=== PATIENT | female | born 1950 | race Caucasian/White ===

== ENCOUNTER → 2017-10-28 | Outpatient (CLI) | payer MEDICARE ==
[~2017-10-28] MED LIST: ALBU8.5H8 IH; AMLO5TAB2 PO; AUD NEB; CLOP75TA32 PO; MIRT30TA6 PO; PANT40TA25 PO; ROSU40TA28 PO
== END | disposition home or self-care (01) ==
LOC: SHCH 11:04
PROVIDERS: ATTEND Internal Medicine Cardiovascular Disease
DX: I87.2 Venous insufficiency (chronic) (peripheral) (principal); K21.9 Gastro-esophageal reflux disease without esophagitis
CPT/HCPCS: 93970

== ENCOUNTER → 2017-12-08 | Outpatient (CLI) | payer MEDICARE | END | disposition home or self-care (01) | LOC: SHCH 10:04 | PROVIDERS: ATTEND Internal Medicine Cardiovascular Disease | DX: I73.9 Peripheral vascular disease, unspecified (principal) | CPT/HCPCS: 93925 ==

== ENCOUNTER → 2018-03-09 | Outpatient (CLI) | payer MEDICARE ==
[~2018-03-09] MED LIST changes: +ROSU40TA20 PO; -ROSU40TA28 PO
== END | disposition home or self-care (01) ==
LOC: SHCH 07:53
PROVIDERS: ATTEND Internal Medicine Cardiovascular Disease
DX: I10 Essential (primary) hypertension (principal)
CPT/HCPCS: 93975

== ENCOUNTER → 2020-09-09 | Outpatient (CLI) | payer MEDICARE ==
[~2020-09-09] MED LIST changes: +AMLO-257 PO; -AMLO5TAB2 PO; -PANT40TA25 PO; +PANT40TA54 PO; -ROSU40TA20 PO; +ROSU40TA21 PO
== END | disposition home or self-care (01) ==
LOC: SHCH 09:34
PROVIDERS: ATTEND Internal Medicine Cardiovascular Disease
DX: I73.9 Peripheral vascular disease, unspecified (principal); I15.0 Renovascular hypertension; R06.09 Other forms of dyspnea; I70.1 Atherosclerosis of renal artery
CPT/HCPCS: 93975

== ENCOUNTER → 2020-09-11 | Outpatient (CLI) | payer MEDICARE | END | disposition home or self-care (01) | LOC: SHCH 14:12 | PROVIDERS: ATTEND Internal Medicine Cardiovascular Disease | DX: R06.09 Other forms of dyspnea (principal) | CPT/HCPCS: 93306; 93356 ==

== ENCOUNTER → 2022-08-13 | Outpatient (CLI) | payer MEDICARE ==
[~2022-08-13] MED LIST changes: +MIRT-93 PO; -MIRT30TA6 PO
== END | disposition home or self-care (01) ==
LOC: SHCH 10:37
PROVIDERS: ATTEND Internal Medicine Cardiovascular Disease
DX: I11.9 Hypertensive heart disease without heart failure (principal); R01.1 Cardiac murmur, unspecified; E78.5 Hyperlipidemia, unspecified; J44.9 Chronic obstructive pulmonary disease, unspecified
CPT/HCPCS: 93306

== ENCOUNTER → 2022-10-01 | Outpatient (CLI) | payer MEDICARE | END | disposition home or self-care (01) | LOC: SHCH 08:03 | PROVIDERS: ATTEND Internal Medicine Cardiovascular Disease | DX: I73.9 Peripheral vascular disease, unspecified (principal); I87.2 Venous insufficiency (chronic) (peripheral); Q27.1 Congenital renal artery stenosis; I15.0 Renovascular hypertension; I70.1 Atherosclerosis of renal artery; I10 Essential (primary) hypertension; E78.5 Hyperlipidemia, unspecified; R01.1 Cardiac murmur, unspecified; R06.02 Shortness of breath; F17.210 Nicotine dependence, cigarettes, uncomplicated | CPT/HCPCS: 93925; 93970; 93975 ==

== ENCOUNTER → 2022-10-02 | Outpatient (CLI) | payer MEDICARE ==
[~2022-10-02] MED LIST changes: +REGADENOSON 0.4 MG/5 ML PF SYG IVP SCH
== END | disposition home or self-care (01) ==
LOC: SHCH 08:11
PROVIDERS: ATTEND Internal Medicine Cardiovascular Disease
DX: R06.02 Shortness of breath (principal); R01.1 Cardiac murmur, unspecified
CPT/HCPCS: 78452; 96374; 93017; J2785; A9500 ×2

== ENCOUNTER → 2022-11-10 | Outpatient (CLI) | payer MEDICARE ==
[~2022-11-10] MED LIST changes: +IOHEXOL 350 MG/ML 100ML INFUS..BTL IV ONE; +IOHEXOL-350 50ML VIAL IV ONE; -REGADENOSON 0.4 MG/5 ML PF SYG IVP SCH
== END | disposition home or self-care (01) ==
LOC: RAH 07:51
PROVIDERS: ATTEND Internal Medicine Cardiovascular Disease
DX: I25.10 Atherosclerotic heart disease of native coronary artery without angina pectoris (principal); M47.815 Spondylosis without myelopathy or radiculopathy, thoracolumbar region; I73.9 Peripheral vascular disease, unspecified
CPT/HCPCS: 75635; Q9967 ×2

== ENCOUNTER 2022-12-16 06:35 | Day surgery (SDC) | payer OTHER, MEDICARE ==
[2022-12-14 12:07] LABS: BASOPHILS % (AUTO) 0.7 % (0.0-5.0); EOSINOPHILS % (AUTO) 2.7 % (0.0-8.0); HEMATOCRIT 38.6 % (36-48); LYMPHOCYTES % (AUTO) 23.8 % (21.0-51.0); MEAN CORPUSCULAR HEMOGLOBIN 29.6 pg (27.0-33.0); MEAN CORPUSCULAR HGB CONC 31.1 g/dL (32.0-36.0); MEAN CORPUSCULAR VOLUME 95.3 fL (79-99); MONOCYTES % (AUTO) 7.9 % (3.0-13.0); NEUTROPHILS % (AUTO) 63.8 % (40.0-77.0); PLATELET COUNT (AUTO) 299 K/uL (130-400); RED BLOOD CELL COUNT(AUTO) 4.05 MIL/uL (4.00-5.50); RED CELL DISTRIBUTION WIDTH 14.6 % (11.0-15.5); WHITE BLOOD COUNT (AUTO) 8.1 K/uL (4.8-10.8)
[2022-12-14 12:16] LABS: CREATININE 1.4 mg/dL (0.5-1.5); POTASSIUM 4.7 mmol/L (3.5-5.1)
[2022-12-14 12:18] LABS: INR 0.93 (0.85-1.15); PROTHROMBIN TIME 9.9 SEC (9.6-11.6)
[2022-12-14 12:19] LABS: PARTIAL THROMBOPLASTIN TIME 26.3 SEC (26.3-35.5)
[2022-12-14 12:41] VITALS: BP 163/69
[~2022-12-16] VITALS: Ht 165.1 cm; Wt 79.0 kg
[2022-12-16] VITALS (7 sets, daily range): BP systolic 122–145; BP diastolic 49–64
[~2022-12-16 06:35] MED LIST changes: -ALBU8.5H8 IH; -AUD NEB; +BACL10TA PO; +BUDE10.7 IH; +CALC-1125 PO; +ICOS1CAP PO; -IOHEXOL 350 MG/ML 100ML INFUS..BTL IV ONE; -IOHEXOL-350 50ML VIAL IV ONE; +LOSA50TA64 PO; +LOTE8.3D OP; -MIRT-93 PO; +OMEP40CA21 PO; -PANT40TA54 PO; +PREG75CA75 PO; -ROSU40TA21 PO; +SEMA1PEN3 SQ; +ZOLP10TA2 PO
[2022-12-16] MEDS ORDERED: 0.9%NACL 1000ML 1,000 ML IV ONE (07:19)
[2022-12-16] MEDS ORDERED: LIDOCAINE HCL 1% MDV 50ML VIAL ONE (10:20)
[2022-12-16] MEDS ORDERED: NITROGLYCERIN 50MG VIAL ONE (10:20)
[2022-12-16] MEDS ORDERED: HEPARIN 10,000 UNIT/10ML (1,000 UNIT/ML) VIAL ONE (10:20)
[2022-12-16] MEDS ORDERED: MIDAZOLAM HCL 1 MG/ML 2ML VIAL ONE (10:20)
[2022-12-16] MEDS ORDERED: FENTANYL CITRATE PF 50 MCG/1 ML 2ML VIAL ONE (10:20)
[2022-12-16] MEDS ORDERED: IODIXANOL 320 MG/ML 100 ML VIAL ONE ×2 (10:22→11:21)
[2022-12-16] MEDS ORDERED: 0.9%NACL 1000ML 1,000 ML IV SCH (12:00)
[2022-12-16] MEDS ORDERED: DEXTROSE 50%-WATER 50 ML DISP.SYRIN IV PRN (12:00)
[2022-12-16] MEDS ORDERED: INSULIN HUMULIN R 100 UNIT/ML 3ML SQ SCH (16:30)
== END 2022-12-16 16:00 | disposition home or self-care (01) ==
LOC: DAH 06:35
PROVIDERS: ATTEND Internal Medicine Cardiovascular Disease
DX: I87.2 Venous insufficiency (chronic) (peripheral) (principal); D72.0 Genetic anomalies of leukocytes; I70.213 Atherosclerosis of native arteries of extremities with intermittent claudication, bilateral legs; I15.0 Renovascular hypertension; I70.1 Atherosclerosis of renal artery; I87.1 Compression of vein; I25.2 Old myocardial infarction; I10 Essential (primary) hypertension; E78.5 Hyperlipidemia, unspecified; J44.9 Chronic obstructive pulmonary disease, unspecified; Z90.49 Acquired absence of other specified parts of digestive tract; Z98.890 Other specified postprocedural states; Z87.891 Personal history of nicotine dependence; Z72.89 Other problems related to lifestyle; Z90.5 Acquired absence of kidney; E89.0 Postprocedural hypothyroidism; Z80.1 Family history of malignant neoplasm of trachea, bronchus and lung; Z79.01 Long term (current) use of anticoagulants; Z79.899 Other long term (current) drug therapy
CPT/HCPCS: 80048; 85025; 85610; 85730; 36415; 71045; 93005; 75625; 36247; 36012; 75716; 75820; 37252; 37253 ×5; 85347; 82948 ×2; C1769; C1894 ×4; C1753; J3010; J7030; J1644 ×2; J2250; J3490 ×2; Q9967; A4215; A4222; A4221; A4663; A4216; A4606; A4223 ×3; 36246; 75822; 99156; 99157

== ENCOUNTER 2023-01-19 06:31 | Day surgery (SDC) | payer MEDICARE ==
[2023-01-14 15:55] LABS: APPEARANCE,URINE CLEAR (CLEAR); BILIRUBIN,URINE NEGATIVE (NEGATIVE); COLOR,URINE COLORLESS (YELLOW); GLUCOSE, URINE (UA) NEGATIVE (NEGATIVE); KETONES,URINE NEGATIVE (NEGATIVE); LEUKOCYTE ESTERASE ,URINE 250 Leu/uL (NEGATIVE); NITRATE,URINE NEGATIVE (NEGATIVE); OCCULT BLOOD,URINE NEGATIVE (NEGATIVE); PH,URINE 5.5 (5.0-8.0); PROTEIN,URINE 70 mg/dL (NEGATIVE); UROBILINOGEN,URINE 0.2 mg/dL (0.2-1.0)
[2023-01-14 15:57] VITALS: BP 165/63
[2023-01-14 15:59] LABS: BASOPHILS % (AUTO) 0.7 % (0.0-5.0); EOSINOPHILS % (AUTO) 2.5 % (0.0-8.0); HEMATOCRIT 35.8 % (36-48); LYMPHOCYTES % (AUTO) 24.2 % (21.0-51.0); MEAN CORPUSCULAR VOLUME 96.8 fL (79-99); MONOCYTES % (AUTO) 9.5 % (3.0-13.0); NEUTROPHILS % (AUTO) 62.2 % (40.0-77.0); PLATELET COUNT (AUTO) 293 K/uL (130-400); RED CELL DISTRIBUTION WIDTH 14.1 % (11.0-15.5); WHITE BLOOD COUNT (AUTO) 9.1 K/uL (4.8-10.8)
[2023-01-14 16:13] LABS: INR 0.93 (0.85-1.15); PROTHROMBIN TIME 9.8 SEC (9.6-11.6)
[2023-01-14 16:14] LABS: CREATININE 1.6 mg/dL (0.5-1.5); PARTIAL THROMBOPLASTIN TIME 28.2 SEC (26.3-35.5); POTASSIUM 4.5 mmol/L (3.5-5.1)
[2023-01-14 16:19] LABS: BACTERIA,URINE MANY /HPF (None Seen); MUCUS,URINE RARE LPF (None Seen); OTHER CASTS, URINE 1 /LPF (None Seen); RBC,URINE 0-1 /HPF (0-1); SQUAMOUS EPITHELIAL CELL,UR RARE /HPF (0-2)
[2023-01-14 16:48] LABS: B-TYPE NATRIURETIC PEPTIDE 37 pg/mL (0-100)
[~2023-01-19] VITALS: Ht 165.1 cm; Wt 77.4 kg
[2023-01-19] VITALS (11 sets, daily range): BP systolic 98–154; BP diastolic 50–83
[~2023-01-19 06:31] MED LIST changes: +0.9% NACL 500ML IV.SOLN 500 ML IV SCH
[2023-01-19] MEDS ORDERED: 0.9%NACL 1000ML 1,000 ML IV ONE (07:37)
[2023-01-19] MEDS ORDERED: MIDAZOLAM HCL 1 MG/ML 2ML VIAL ONE ×2 (08:45→09:56)
[2023-01-19] MEDS ORDERED: LIDOCAINE HCL 400MG/20ML VIAL ONE (08:45)
[2023-01-19] MEDS ORDERED: IODIXANOL 320 MG/ML 100 ML VIAL ONE ×2 (08:45→08:48)
[2023-01-19] MEDS ORDERED: FENTANYL CITRATE PF 50 MCG/1 ML 2ML VIAL ONE ×2 (08:45→10:43)
[2023-01-19] MEDS ORDERED: HEPARIN 10,000 UNIT/10ML (1,000 UNIT/ML) VIAL ONE (08:46)
[2023-01-19] MEDS ORDERED: NITROGLYCERIN 50MG VIAL ONE (08:46)
[2023-01-19] MEDS ORDERED: LABETALOL 20MG SYG IV ONE (11:31)
[2023-01-19] MEDS ORDERED: CLOPIDOGREL 300MG TAB ONE (11:40)
[2023-01-19] MEDS ORDERED: DEXTROSE 50%-WATER 50 ML DISP.SYRIN IV PRN (12:00)
[2023-01-19] MEDS ORDERED: GLUCAGON 1MG KIT 1 MG ML IM PRN (12:00)
[2023-01-19] MEDS ORDERED: 0.9%NACL 1000ML 1,000 ML IV SCH (12:00)
[2023-01-19] MEDS ORDERED: ACETAMINOPHEN 325 MG TAB PO SCH (13:00)
[2023-01-19] MEDS ORDERED: ACETAMINOPHEN 325 MG TAB ONE (13:04)
== END 2023-01-19 17:39 | disposition home or self-care (01) ==
LOC: DAH 06:31
PROVIDERS: ATTEND Internal Medicine Cardiovascular Disease
DX: I70.212 Atherosclerosis of native arteries of extremities with intermittent claudication, left leg (principal); I87.1 Compression of vein; I70.1 Atherosclerosis of renal artery; I15.0 Renovascular hypertension; E11.51 Type 2 diabetes mellitus with diabetic peripheral angiopathy without gangrene; I87.2 Venous insufficiency (chronic) (peripheral); I10 Essential (primary) hypertension; E78.5 Hyperlipidemia, unspecified; J44.9 Chronic obstructive pulmonary disease, unspecified; E89.0 Postprocedural hypothyroidism; Z82.49 Family history of ischemic heart disease and other diseases of the circulatory system; Z87.891 Personal history of nicotine dependence; Z72.89 Other problems related to lifestyle; Z90.49 Acquired absence of other specified parts of digestive tract; Z79.82 Long term (current) use of aspirin; Z90.5 Acquired absence of kidney; Z79.01 Long term (current) use of anticoagulants; Z79.899 Other long term (current) drug therapy; Z98.890 Other specified postprocedural states
CPT/HCPCS: 80048; 83880; 85025; 85610; 85730; 87077; 87088; 87186; 81001; 36415; 71045; 93005; 75710; 85347; 82948 ×2; C9765; C1725; C1894 ×3; C1769 ×3; C1753; C1876; C2623; J3010 ×2; J3490 ×2; J7030; J1644 ×2; J2250 ×2; Q9967; A4215; A4222; A4221; A4663; A4216; A4606; A4223 ×3; 96360; 96361; 99156; 99157

== ENCOUNTER 2023-05-17 22:44 | Inpatient (IN) | payer MEDICARE ==
[~2023-05-17] VITALS: Ht 165.1 cm; Wt 78.9 kg
[~2023-05-17 22:44] MED LIST changes: -0.9% NACL 500ML IV.SOLN 500 ML IV SCH; +ATOR40TA71 PO; +BRESALTEC IH; +FAMO40TA7 PO; -ICOS1CAP PO; +VITAMIN B12 PO
[2023-05-17 23:15] LABS: BASOPHILS % (AUTO) 0.6 % (0.0-5.0); EOSINOPHILS % (AUTO) 0.2 % (0.0-8.0); HEMATOCRIT 37.2 % (36-48); LYMPHOCYTES % (AUTO) 16.1 % (21.0-51.0); MEAN CORPUSCULAR HEMOGLOBIN 30.3 pg (27.0-33.0); MEAN CORPUSCULAR HGB CONC 31.5 g/dL (32.0-36.0); MEAN CORPUSCULAR VOLUME 96.4 fL (79-99); MONOCYTES % (AUTO) 6.5 % (3.0-13.0); NEUTROPHILS % (AUTO) 74.8 % (40.0-77.0); PLATELET COUNT (AUTO) 418 K/uL (130-400); RED BLOOD CELL COUNT(AUTO) 3.86 MIL/uL (4.00-5.50); RED CELL DISTRIBUTION WIDTH 13.4 % (11.0-15.5); WHITE BLOOD COUNT (AUTO) 15.7 K/uL (4.8-10.8)
[2023-05-17 23:36] LABS: CREATININE 2.2 mg/dL (0.5-1.5); TOTAL PROTEIN, SERUM 8.4 g/dL (6.0-8.3)
[2023-05-18] VITALS (46 sets, daily range): BP systolic 88–147; BP diastolic 42–89; PULSE 83–103; RESP 15–88; O2SAT 89–94
[2023-05-18] MEDS ORDERED: ACETAMINOPHEN 325 MG TAB ONE (00:05)
[2023-05-18 00:09] LABS: MAGNESIUM 1.6 mg/dL (1.80-2.40)
[2023-05-18] MEDS ORDERED: METOPROLOL TARTRATE 1 MG/ML 5ML VIAL IV ONE (00:30)
[2023-05-18] MEDS ORDERED: ONDANSETRON 4MG INJ IVP ONE (00:30)
[2023-05-18] MEDS ORDERED: NITROGLYCERIN 50MG/D5W 250ML 1 BOT IV PRN (00:30)
[2023-05-18] MEDS ORDERED: LORAZEPAM 2 MG/ML 1 ML VIAL IVP ONE (00:30)
[2023-05-18] MEDS ORDERED: MAGNESIUM 2GM PREMIX 50ML 50 ML IV SCH (01:00)
[2023-05-18] MEDS ORDERED: ONDANSETRON 4MG INJ IVP PRN (01:00)
[2023-05-18] MEDS ORDERED: MORPHINE 2 MG SYG IVP PRN ×2 (01:00→16:30)
[2023-05-18] MEDS: ACETAMINOPHEN 325 MG TAB PO PRN ×4 (01:03→21:26)
[2023-05-18 01:07] LABS: INR 0.93 (0.85-1.15); PROTHROMBIN TIME 10.7 SEC (9.6-11.6)
[2023-05-18] MEDS ORDERED: HEPARIN 5,000 UNIT VIAL ONE (01:07)
[2023-05-18] MEDS: HEPARIN 25,000 UNITS/250ML D5W 250 ML IV SCH ×2 (01:31→19:35)
[2023-05-18] MEDS: INSULIN HUMULIN R 100 UNIT/ML 3ML SQ SCH ×4 (05:39→21:00)
[2023-05-18 07:10] LABS: BASOPHILS % (AUTO) 0.8 % (0.0-5.0); EOSINOPHILS % (AUTO) 0.3 % (0.0-8.0); HEMATOCRIT 34.9 % (36-48); LYMPHOCYTES % (AUTO) 24.5 % (21.0-51.0); MEAN CORPUSCULAR HEMOGLOBIN 30.6 pg (27.0-33.0); MEAN CORPUSCULAR HGB CONC 31.5 g/dL (32.0-36.0); MEAN CORPUSCULAR VOLUME 96.9 fL (79-99); NEUTROPHILS % (AUTO) 65.3 % (40.0-77.0); PLATELET COUNT (AUTO) 346 K/uL (130-400); RED CELL DISTRIBUTION WIDTH 13.4 % (11.0-15.5); WHITE BLOOD COUNT (AUTO) 11.6 K/uL (4.8-10.8)
[2023-05-18 07:19] LABS: HEMOGLOBIN A1C 6.2 % (4.0-6.0)
[2023-05-18 07:24] LABS: INR 0.94 (0.85-1.15); PROTHROMBIN TIME 10.9 SEC (9.6-11.6)
[2023-05-18 07:33] LABS: CREATININE 1.9 mg/dL (0.5-1.5); MAGNESIUM 2.2 mg/dL (1.80-2.40); POTASSIUM 4.3 mmol/L (3.5-5.1)
[2023-05-18] MEDS ORDERED: ATORVASTATIN 40 MG TABLET PO SCH (09:00)
[2023-05-18] MEDS ORDERED: FUROSEMIDE 20MG VIAL IV SCH (15:30)
[2023-05-18] MEDS ORDERED: RENAL DOSE IV PRN (16:00)
[2023-05-18] MEDS: NITROGLYCERIN 1GM OINT 1 INCH/1GM TD SCH (16:00)
[2023-05-18] MEDS ORDERED: LEVOFLOXACIN 500 MG/D5W 100 ML 100 ML IV ONE (16:30)
[2023-05-18 18:06] LABS: APPEARANCE,URINE CLOUDY (CLEAR); BILIRUBIN,URINE NEGATIVE (NEGATIVE); COLOR,URINE LIGHT-YELLOW (YELLOW); GLUCOSE, URINE (UA) NEGATIVE (NEGATIVE); KETONES,URINE NEGATIVE (NEGATIVE); LEUKOCYTE ESTERASE ,URINE 500 Leu/uL (NEGATIVE); NITRATE,URINE NEGATIVE (NEGATIVE); PH,URINE 5.5 (5.0-8.0); PROTEIN,URINE 100 mg/dL (NEGATIVE); UROBILINOGEN,URINE 0.2 mg/dL (0.2-1.0)
[2023-05-18 18:09] LABS: BACTERIA,URINE MANY /HPF (None Seen); MUCUS,URINE RARE LPF (None Seen); SQUAMOUS EPITHELIAL CELL,UR FEW /HPF (0-2); WBC,URINE 51-100 /HPF (0-1); YEAST,URINE BUDDING RARE /HPF (None Seen)
[2023-05-18] MEDS: BUDESONIDE 0.5 MG/2 ML INH IH SCH (18:45)
[2023-05-18] MEDS: IPRATROPIUM/ALBUTEROL SULFATE 3 ML SOLUTION IH SCH ×2 (18:45→23:16)
[2023-05-18] MEDS: ACETYLCYSTEINE 20% 200MG/ML 4ML VIAL PO SCH (18:45)
[2023-05-18] MEDS ORDERED: NON-FORMULARY MEDICATION 1 EACH (Zolpidem Tartrate (Ambien) 10 MG) PO SCH (21:00)
[2023-05-18] MEDS: ATORVASTATIN 40 MG TABLET PO SCH (21:10)
[2023-05-18] MEDS: ZOLPIDEM TARTRATE 5 MG TAB PO PRN (21:26)
[2023-05-19] VITALS (24 sets, daily range): BP systolic 89–131; BP diastolic 41–68; PULSE 73–95; RESP 14–40; O2SAT 93–97
[2023-05-19 05:15] LABS: HEMATOCRIT 36.1 % (36-48); MEAN CORPUSCULAR HEMOGLOBIN 30.2 pg (27.0-33.0); MEAN CORPUSCULAR HGB CONC 30.7 g/dL (32.0-36.0); MEAN CORPUSCULAR VOLUME 98.1 fL (79-99); NUCLEATED RED BLOOD CELLS 0.2 % (0.0-0.19); PLATELET COUNT (AUTO) 320 K/uL (130-400); RED BLOOD CELL COUNT(AUTO) 3.68 MIL/uL (4.00-5.50); RED CELL DISTRIBUTION WIDTH 13.7 % (11.0-15.5); WHITE BLOOD COUNT (AUTO) 12.7 K/uL (4.8-10.8)
[2023-05-19 05:30] LABS: INR 0.97 (0.85-1.15); PROTHROMBIN TIME 11.3 SEC (9.6-11.6)
[2023-05-19 05:32] LABS: PARTIAL THROMBOPLASTIN TIME 57.2 SEC (26.3-35.5)
[2023-05-19 05:58] LABS: B-TYPE NATRIURETIC PEPTIDE 1210 pg/mL (0-100)
[2023-05-19] MEDS: INSULIN HUMULIN R 100 UNIT/ML 3ML SQ SCH ×4 (06:01→21:00)
[2023-05-19 06:14] LABS: CREATININE 1.8 mg/dL (0.5-1.5); MAGNESIUM 1.9 mg/dL (1.80-2.40); POTASSIUM 4.3 mmol/L (3.5-5.1)
[2023-05-19] MEDS: BUDESONIDE 0.5 MG/2 ML INH IH SCH ×2 (06:17→18:41)
[2023-05-19] MEDS: IPRATROPIUM/ALBUTEROL SULFATE 3 ML SOLUTION IH SCH ×4 (06:18→23:15)
[2023-05-19] MEDS: ACETYLCYSTEINE 20% 200MG/ML 4ML VIAL PO SCH (06:18)
[2023-05-19] MEDS: NITROGLYCERIN 1GM OINT 1 INCH/1GM TD SCH ×4 (08:00→23:55)
[2023-05-19] MEDS: CLOPIDOGREL 75MG TAB PO SCH (08:17)
[2023-05-19] MEDS: PANTOPRAZOLE 40 MG TAB DR PO SCH (08:17)
[2023-05-19] MEDS ORDERED: NON-FORMULARY MEDICATION 1 EACH (Omeprazole 40 MG) PO SCH (09:00)
[2023-05-19] MEDS: ACETAMINOPHEN 325 MG TAB PO PRN ×3 (09:15→21:30)
[2023-05-19] MEDS: METRONIDAZOLE 500MG/100ML BAG 100 ML IVPB SCH ×2 (13:27→21:31)
[2023-05-19] MEDS: HEPARIN 25,000 UNITS/250ML D5W 250 ML IV SCH (13:55)
[2023-05-19] MEDS ORDERED: LEVOFLOXACIN 250 MG/D5W 50ML 50 ML IVPB SCH (16:30)
[2023-05-19] MEDS: ATORVASTATIN 40 MG TABLET PO SCH (21:28)
[2023-05-19] MEDS: METOPROLOL TARTRATE 25 MG TAB PO SCH (21:29)
[2023-05-19] MEDS: ZOLPIDEM TARTRATE 5 MG TAB PO PRN (21:30)
[2023-05-20] VITALS (11 sets, daily range): BP systolic 91–134; BP diastolic 38–74; PULSE 71–87; RESP 15–21; O2SAT 94–100
[2023-05-20] MEDS: ACETAMINOPHEN 325 MG TAB PO PRN ×2 (02:47→08:51)
[2023-05-20 04:17] LABS: HEMATOCRIT 31.7 % (36-48); MEAN CORPUSCULAR HEMOGLOBIN 30.3 pg (27.0-33.0); MEAN CORPUSCULAR HGB CONC 31.5 g/dL (32.0-36.0); MEAN CORPUSCULAR VOLUME 96.1 fL (79-99); RED BLOOD CELL COUNT(AUTO) 3.3 MIL/uL (4.00-5.50); RED CELL DISTRIBUTION WIDTH 13.4 % (11.0-15.5); WHITE BLOOD COUNT (AUTO) 8.4 K/uL (4.8-10.8)
[2023-05-20 04:26] LABS: CREATININE 1.8 mg/dL (0.5-1.5); POTASSIUM 3.4 mmol/L (3.5-5.1)
[2023-05-20] MEDS: INSULIN HUMULIN R 100 UNIT/ML 3ML SQ SCH ×2 (05:26→11:30)
[2023-05-20] MEDS: METRONIDAZOLE 500MG/100ML BAG 100 ML IVPB SCH (05:27)
[2023-05-20] MEDS: BUDESONIDE 0.5 MG/2 ML INH IH SCH (06:26)
[2023-05-20] MEDS: IPRATROPIUM/ALBUTEROL SULFATE 3 ML SOLUTION IH SCH ×2 (06:26→11:37)
[2023-05-20] MEDS: METOPROLOL TARTRATE 25 MG TAB PO SCH (08:49)
[2023-05-20] MEDS: PANTOPRAZOLE 40 MG TAB DR PO SCH (08:50)
[2023-05-20] MEDS: CLOPIDOGREL 75MG TAB PO SCH (08:50)
[2023-05-20] MEDS: NITROGLYCERIN 1GM OINT 1 INCH/1GM TD SCH (08:50)
[2023-05-20] MEDS ORDERED: CEFUROXIME AXETIL 250 MG TABLET PO SCH (09:30)
[2023-05-20] MEDS ORDERED: KCL 20 MEQ ERTAB PO ONE (09:30)
[2023-05-20] MEDS: HEPARIN 25,000 UNITS/250ML D5W 250 ML IV SCH (09:56)
[2023-05-20] MEDS: ACETYLCYSTEINE 20% 200MG/ML 4ML VIAL PO SCH (10:02)
[2023-05-20] MEDS ORDERED: LEVO250T75 PO (12:45)
[2023-05-20] MEDS ORDERED: METR-172 PO (12:45)
== END 2023-05-20 13:00 | disposition home or self-care (01) | DRG 280 ==
LOC: EDH 22:44 → EDHIP 05-18 00:29 → 2CH 05-18 01:50 → 2DH 05-20 09:02
PROVIDERS: ADMIT Internal Medicine Infectious Disease; ATTEND Internal Medicine Infectious Disease
DX: I21.4 Non-ST elevation (NSTEMI) myocardial infarction (principal); I50.43 Acute on chronic combined systolic (congestive) and diastolic (congestive) heart failure; J18.9 Pneumonia, unspecified organism; J96.21 Acute and chronic respiratory failure with hypoxia; J44.1 Chronic obstructive pulmonary disease with (acute) exacerbation; J44.0 Chronic obstructive pulmonary disease with (acute) lower respiratory infection; N17.9 Acute kidney failure, unspecified; I13.0 Hypertensive heart and chronic kidney disease with heart failure and stage 1 through stage 4 chronic kidney disease, or unspecified chronic kidney disease; N39.0 Urinary tract infection, site not specified; E11.22 Type 2 diabetes mellitus with diabetic chronic kidney disease; D64.9 Anemia, unspecified; E11.42 Type 2 diabetes mellitus with diabetic polyneuropathy; E11.51 Type 2 diabetes mellitus with diabetic peripheral angiopathy without gangrene; E21.0 Primary hyperparathyroidism; E78.2 Mixed hyperlipidemia; F41.9 Anxiety disorder, unspecified; I25.10 Atherosclerotic heart disease of native coronary artery without angina pectoris; I34.0 Nonrheumatic mitral (valve) insufficiency; N18.30 Chronic kidney disease, stage 3 unspecified; Z80.9 Family history of malignant neoplasm, unspecified; Z82.49 Family history of ischemic heart disease and other diseases of the circulatory system; Z83.3 Family history of diabetes mellitus; Z87.891 Personal history of nicotine dependence; Z88.6 Allergy status to analgesic agent; Z90.5 Acquired absence of kidney; Z99.81 Dependence on supplemental oxygen
CPT/HCPCS: 36415; 71045; 71250; 80048; 80053; 80061; 81001; 82550; 82948; 83036; 83735; 83874; 83880; 84145; 84484; 85025; 85027; 85610; 85730; 87077; 87088; 87186; 93005; 93306; 93356; 93970; 94640; 94664; A4344; A4357; G0378; J1644; J1956; J2060; J2270; J2405; J3475; J3490; J7608

== ENCOUNTER 2023-08-16 19:39 | Emergency (ER) | payer MEDICARE ==
[~2023-08-16] VITALS: Ht 165.1 cm; Wt 76.7 kg
[~2023-08-16 19:39] MED LIST changes: -AMLO-257 PO; +DICL20GE TP; -FAMO40TA7 PO; +FURO20TA4 PO; +METO-408 PO; -PREG75CA75 PO; +PREG75CA76 PO
[2023-08-16] MEDS ORDERED: SOLU-MEDROL 125MG VIAL IVP ONE (20:30)
[2023-08-16] MEDS ORDERED: IPRATROPIUM/ALBUTEROL SULFATE 3 ML SOLUTION IH ONE (20:30)
[2023-08-16 20:36] LABS: BASOPHILS # (AUTO) 0.05 K/uL (0.00-0.20); BASOPHILS % (AUTO) 0.5 % (0.0-5.0); EOSINOPHILS # (AUTO) 0.29 K/uL (0.00-0.70); EOSINOPHILS % (AUTO) 2.7 % (0.0-8.0); HEMATOCRIT 35.8 % (36-48); IMMATURE GRANULOCYTE ABSOLUTE 0.05 K/uL (0-1); LYMPHOCYTES # (AUTO) 2.4 K/uL (1.0-4.8); LYMPHOCYTES % (AUTO) 22.6 % (21.0-51.0); MEAN CORPUSCULAR HGB CONC 32.1 g/dL (32.0-36.0); MEAN CORPUSCULAR VOLUME 93.5 fL (79-99); MONOCYTES # (AUTO) 0.9 K/uL (0.1-1.0); MONOCYTES % (AUTO) 8.4 % (3.0-13.0); NEUTROPHILS # (AUTO) 7.1 K/uL (1.8-7.7); NEUTROPHILS % (AUTO) 65.3 % (40.0-77.0); PLATELET COUNT (AUTO) 256 K/uL (130-400); RED BLOOD CELL COUNT(AUTO) 3.83 MIL/uL (4.00-5.50); RED CELL DISTRIBUTION WIDTH 13.5 % (11.0-15.5); WHITE BLOOD COUNT (AUTO) 10.8 K/uL (4.8-10.8)
[2023-08-16 20:39] VITALS: PULSE 68; RESP 14
[2023-08-16 20:44] LABS: CREATININE 1.4 mg/dL (0.5-1.5); POTASSIUM 4.4 mmol/L (3.5-5.1)
[2023-08-16 20:53] LABS: ALBUMIN 3.7 g/dL (3.5-5.0); BILIRUBIN,TOTAL 0.2 mg/dL (0.2-1.0); TOTAL PROTEIN, SERUM 7.6 g/dL (6.0-8.3)
[2023-08-16] MEDS ORDERED: ACETAMINOPHEN 325 MG TAB PO ONE (21:00)
[2023-08-16] MEDS ORDERED: MAGNESIUM 2GM PREMIX 50ML 50 ML IV SCH (22:30)
[2023-08-16 23:05] VITALS: BP 126/72; O2SAT 99
[2023-08-16 23:53] VITALS: PULSE 80; PULSE 88; RESP 18; O2SAT 98
[2023-08-17] MEDS ORDERED: ALBU90AE2 IH (00:06)
[2023-08-17] MEDS ORDERED: PRED20TA3 PO (00:06)
[2023-08-17] MEDS ORDERED: AZIT500T2 PO (00:06)
== END 2023-08-17 00:24 | disposition home or self-care (01) ==
LOC: EDH 19:39
DX: J44.1 Chronic obstructive pulmonary disease with (acute) exacerbation (principal); I10 Essential (primary) hypertension; E11.9 Type 2 diabetes mellitus without complications; Z79.899 Other long term (current) drug therapy; Z87.891 Personal history of nicotine dependence; Z98.890 Other specified postprocedural states; Z88.6 Allergy status to analgesic agent; Z95.5 Presence of coronary angioplasty implant and graft
CPT/HCPCS: 99285; 96374; 71045; 84484; 80053; 83880; 83690; 85025; 36415; 93005; 94640; J2930; 94760

== ENCOUNTER → 2023-10-06 | Outpatient (CLI) | payer MEDICARE ==
[~2023-10-06] MED LIST changes: +ALBU90AE2 IH; +AZIT500T2 PO; +IOHEXOL 350 MG/ML 100ML INFUS..BTL IV ONE; +IOHEXOL-350 50ML VIAL IV ONE; +PRED20TA3 PO
== END | disposition home or self-care (01) ==
LOC: RAH 08:12
PROVIDERS: ATTEND Internal Medicine Cardiovascular Disease
DX: N28.1 Cyst of kidney, acquired (principal); I71.40 Abdominal aortic aneurysm, without rupture, unspecified; I70.90 Unspecified atherosclerosis; I70.8 Atherosclerosis of other arteries; M47.815 Spondylosis without myelopathy or radiculopathy, thoracolumbar region; K76.0 Fatty (change of) liver, not elsewhere classified; K57.90 Diverticulosis of intestine, part unspecified, without perforation or abscess without bleeding; Z90.49 Acquired absence of other specified parts of digestive tract
CPT/HCPCS: 75635; Q9967 ×2

== ENCOUNTER → 2024-07-11 | Outpatient (CLI) | payer MEDICARE | END | disposition home or self-care (01) | LOC: SHCH 12:52 | PROVIDERS: ATTEND Internal Medicine Cardiovascular Disease | DX: I87.2 Venous insufficiency (chronic) (peripheral) (principal); I87.1 Compression of vein; I73.9 Peripheral vascular disease, unspecified | CPT/HCPCS: 93925; 93970 ==

== ENCOUNTER 2024-08-16 15:50 | Inpatient (IN) | payer MEDICARE ==
[~2024-08-16] VITALS: Ht 165.1 cm; Wt 77.1 kg
[2024-08-16 16:11] LABS: BASOPHILS # (AUTO) 0.08 K/uL (0.00-0.20); BASOPHILS % (AUTO) 0.8 % (0.0-5.0); HEMATOCRIT 37.8 % (36-48); IMMATURE GRANULOCYTE ABSOLUTE 0.22 K/uL (0-1); LYMPHOCYTES # (AUTO) 2.4 K/uL (1.0-4.8); LYMPHOCYTES % (AUTO) 23.9 % (21.0-51.0); MEAN CORPUSCULAR HEMOGLOBIN 30.5 pg (27.0-33.0); MEAN CORPUSCULAR VOLUME 95.2 fL (79-99); MONOCYTES # (AUTO) 0.8 K/uL (0.1-1.0); MONOCYTES % (AUTO) 8.4 % (3.0-13.0); NEUTROPHILS % (AUTO) 60.7 % (40.0-77.0); PLATELET COUNT (AUTO) 302 K/uL (130-400); RED BLOOD CELL COUNT(AUTO) 3.97 MIL/uL (4.00-5.50); RED CELL DISTRIBUTION WIDTH 13.6 % (11.0-15.5); WHITE BLOOD COUNT (AUTO) 9.9 K/uL (4.8-10.8)
[2024-08-16 16:29] LABS: CREATININE 1.6 mg/dL (0.5-1.0); POTASSIUM 3.8 mmol/L (3.5-5.1)
[2024-08-16 17:13] LABS: ERYTHROCYTE SEDIMENTATION RATE 46 MM/HR (0-30)
[2024-08-16] MEDS ORDERED: VANCOMYCIN PROTOCOL PER PHARMACY IV SCH ×2 (18:00→18:30)
[2024-08-16] MEDS ORDERED: ceFEPime HCL 1 GM VIAL IVPB ONE ×2 (18:00→18:30)
[2024-08-16] MEDS: ceFEPime HCL 1 GM VIAL IVPB SCH (18:09)
[2024-08-16] MEDS: VANCOMYCIN 1G/250ML KIT 250 ML IV SCH (18:13)
[2024-08-16] MEDS ORDERED: ceFEPime HCL 1 GM VIAL IVPB SCH (18:30)
[2024-08-16] MEDS ORDERED: ondanSETRON 4MG INJ IVP PRN (18:30)
[2024-08-16] MEDS: acetaMINOPHEN 325 MG TAB PO PRN (20:14)
[2024-08-16] MEDS: INSULIN humuLIN R 100 UNIT/ML 3ML SQ SCH (21:00)
[2024-08-16 22:40] VITALS: BP 168/73; PULSE 69; RESP 20; TEMP 98.4
[2024-08-16] MEDS ORDERED: BACL10TA PO (22:53)
[2024-08-16] MEDS ORDERED: METO-408 PO (22:53)
[2024-08-16] MEDS ORDERED: SODI650T PO (22:53)
[2024-08-16] MEDS ORDERED: PANT40TA55 PO (22:53)
[2024-08-16] MEDS ORDERED: ZOLP10TA2 PO (22:53)
[2024-08-16] MEDS ORDERED: PREG75CA76 PO (22:53)
[2024-08-16] MEDS ORDERED: FURO20TA4 PO (22:53)
[2024-08-16] MEDS ORDERED: CLOP75TA32 PO (22:53)
[2024-08-16] MEDS ORDERED: DEXL60CA18 PO (23:06)
[2024-08-16] MEDS ORDERED: IPRA3AMP24 NEB (23:06)
[2024-08-16] MEDS ORDERED: EVOL140S2 SQ (23:07)
[2024-08-16 23:40] VITALS: O2SAT 95
[2024-08-17] VITALS (9 sets, daily range): BP systolic 124–158; BP diastolic 60–80; PULSE 69–84; RESP 18–21; TEMP 97.6–98.6; O2SAT 95–98
[2024-08-17 04:28] LABS: BASOPHILS # (AUTO) 0.09 K/uL (0.00-0.20); BASOPHILS % (AUTO) 1.1 % (0.0-5.0); EOSINOPHILS # (AUTO) 0.35 K/uL (0.00-0.70); EOSINOPHILS % (AUTO) 4.4 % (0.0-8.0); HEMATOCRIT 34.1 % (36-48); IMMATURE GRANULOCYTE ABSOLUTE 0.19 K/uL (0-1); LYMPHOCYTES # (AUTO) 2.3 K/uL (1.0-4.8); LYMPHOCYTES % (AUTO) 28.4 % (21.0-51.0); MEAN CORPUSCULAR HEMOGLOBIN 30.1 pg (27.0-33.0); MEAN CORPUSCULAR HGB CONC 31.4 g/dL (32.0-36.0); MEAN CORPUSCULAR VOLUME 95.8 fL (79-99); MONOCYTES # (AUTO) 0.9 K/uL (0.1-1.0); MONOCYTES % (AUTO) 10.7 % (3.0-13.0); NEUTROPHILS # (AUTO) 4.2 K/uL (1.8-7.7); PLATELET COUNT (AUTO) 254 K/uL (130-400); RED BLOOD CELL COUNT(AUTO) 3.56 MIL/uL (4.00-5.50); RED CELL DISTRIBUTION WIDTH 13.6 % (11.0-15.5)
[2024-08-17 04:36] LABS: CREATININE 1.6 mg/dL (0.5-1.0); MAGNESIUM 1.9 mg/dL (1.80-2.40); POTASSIUM 3.9 mmol/L (3.5-5.1)
[2024-08-17] MEDS: IpraTROPium/alBUTERol SULFATE 3 ML SOLUTION IH PRN (04:56)
[2024-08-17] MEDS ORDERED: furoSEMIDE 20 MG TABLET PO SCH (08:00)
[2024-08-17] MEDS: SODIUM BICARBONATE 650 MG TAB PO SCH (08:23)
[2024-08-17] MEDS: pregABALin 75 MG CAPSULE PO SCH (08:23)
[2024-08-17] MEDS: metOPROLol sucCINATE 25 MG TAB.SR.24H PO SCH (08:24)
[2024-08-17] MEDS: ENOXAPARIN SODIUM 30 MG/0.3 ML SQ SCH (08:25)
[2024-08-17] MEDS ORDERED: DEXLANSOPRAZOLE PO SCH (09:00)
[2024-08-17] MEDS: traMADol HCL 50 MG TABLET PO PRN (15:18)
[2024-08-17] MEDS: NACL IV SCH (16:30)
[2024-08-17] MEDS ORDERED: PHARMACY COMMUNICATION MISC SCH (16:30)
[2024-08-17] MEDS: BACLOFEN 10 MG TABLET PO SCH (20:56)
[2024-08-17] MEDS: PANTOPrazole 40 MG TAB DR PO SCH (20:56)
[2024-08-17] MEDS ORDERED: pregABALin 75 MG CAPSULE PO SCH (21:00)
[2024-08-17] MEDS: ZOLPidem TARTrate 5 MG TAB PO SCH (22:34)
[2024-08-18] VITALS (7 sets, daily range): BP systolic 120–125; BP diastolic 55–72; PULSE 73–88; RESP 18–20; TEMP 97.5–98.5; O2SAT 95–98
== END 2024-08-18 16:10 | disposition home or self-care (01) | DRG 603 ==
LOC: EDH 15:50 → EDHIP 18:01 → 3AH 21:15
PROVIDERS: ADMIT Internal Medicine Infectious Disease; ATTEND Internal Medicine Infectious Disease
DX: L03.032 Cellulitis of left toe (principal); L97.528 Non-pressure chronic ulcer of other part of left foot with other specified severity; E11.621 Type 2 diabetes mellitus with foot ulcer; E11.51 Type 2 diabetes mellitus with diabetic peripheral angiopathy without gangrene; M1A.9XX1 Chronic gout, unspecified, with tophus (tophi); E11.22 Type 2 diabetes mellitus with diabetic chronic kidney disease; E21.0 Primary hyperparathyroidism; F17.200 Nicotine dependence, unspecified, uncomplicated; I12.9 Hypertensive chronic kidney disease with stage 1 through stage 4 chronic kidney disease, or unspecified chronic kidney disease; I70.1 Atherosclerosis of renal artery; E78.00 Pure hypercholesterolemia, unspecified; K21.9 Gastro-esophageal reflux disease without esophagitis; I25.10 Atherosclerotic heart disease of native coronary artery without angina pectoris; J44.9 Chronic obstructive pulmonary disease, unspecified; N18.30 Chronic kidney disease, stage 3 unspecified; Z82.49 Family history of ischemic heart disease and other diseases of the circulatory system; Z83.3 Family history of diabetes mellitus; Z90.5 Acquired absence of kidney
CPT/HCPCS: 36415; 73660; 73718; 80048; 82306; 82607; 82948; 83036; 83605; 83735; 84145; 84550; 85025; 85651; 87040; 93925; 94640; 94664; 96365; 96368; G0378; J0692; J1650; J3370

== ENCOUNTER → 2024-08-21 | Outpatient (CLI) | payer MEDICARE ==
[~2024-08-21] MED LIST changes: -ALBU90AE2 IH; -ATOR40TA71 PO; -AZIT500T2 PO; -BRESALTEC IH; -BUDE10.7 IH; -CALC-1125 PO; +DEXL60CA18 PO; -DICL20GE TP; +EVOL140S2 SQ; -IOHEXOL 350 MG/ML 100ML INFUS..BTL IV ONE; -IOHEXOL-350 50ML VIAL IV ONE; +IPRA3AMP24 NEB; +LIDOCAINE HCL 1% 20 ML VIAL MISC ONE; +LIDOCAINE HCL 4% LTA SOL 4 ML VIAL TP ONE; -LOSA50TA64 PO; -LOTE8.3D OP; -OMEP40CA21 PO; +PANT40TA55 PO; -PRED20TA3 PO; -SEMA1PEN3 SQ; +SODI650T PO; -VITAMIN B12 PO
--- NOTE | 2024-08-21 14:19 | HMCIMG ---
CHEST 2VWS HISTORY: Diabetes COMPARISON: 01/31/2024 FINDINGS: Frontal and lateral projections of the chest were obtained. There is no acute pulmonary infiltrates or failure. The heart is not enlarged. Aortic calcifications are seen. COPD changes are seen. Degenerative changes are seen of the thoracolumbar spine. IMPRESSION: 1. No acute pulmonary infiltrates.
== END | disposition home or self-care (01) ==
LOC: WHH 11:10
PROVIDERS: ATTEND Family Medicine
DX: E11.621 Type 2 diabetes mellitus with foot ulcer (principal); L97.522 Non-pressure chronic ulcer of other part of left foot with fat layer exposed; E11.22 Type 2 diabetes mellitus with diabetic chronic kidney disease; I12.9 Hypertensive chronic kidney disease with stage 1 through stage 4 chronic kidney disease, or unspecified chronic kidney disease; N18.30 Chronic kidney disease, stage 3 unspecified; E11.51 Type 2 diabetes mellitus with diabetic peripheral angiopathy without gangrene; E78.5 Hyperlipidemia, unspecified; I25.10 Atherosclerotic heart disease of native coronary artery without angina pectoris; K21.9 Gastro-esophageal reflux disease without esophagitis; J44.9 Chronic obstructive pulmonary disease, unspecified; M10.9 Gout, unspecified; Z79.01 Long term (current) use of anticoagulants; Z79.899 Other long term (current) drug therapy
CPT/HCPCS: 11042; 71046; A6248; A4450

== ENCOUNTER → 2024-08-22 | Outpatient (CLI) | payer MEDICARE ==
[~2024-08-22] MED LIST changes: -LIDOCAINE HCL 1% 20 ML VIAL MISC ONE; -LIDOCAINE HCL 4% LTA SOL 4 ML VIAL TP ONE
== END | disposition home or self-care (01) ==
LOC: WHH 11:01
PROVIDERS: ATTEND Family Medicine
DX: E11.621 Type 2 diabetes mellitus with foot ulcer (principal); L97.522 Non-pressure chronic ulcer of other part of left foot with fat layer exposed; I87.2 Venous insufficiency (chronic) (peripheral); E11.51 Type 2 diabetes mellitus with diabetic peripheral angiopathy without gangrene; E11.22 Type 2 diabetes mellitus with diabetic chronic kidney disease; I12.9 Hypertensive chronic kidney disease with stage 1 through stage 4 chronic kidney disease, or unspecified chronic kidney disease; N18.30 Chronic kidney disease, stage 3 unspecified; J44.9 Chronic obstructive pulmonary disease, unspecified; I25.10 Atherosclerotic heart disease of native coronary artery without angina pectoris; K21.9 Gastro-esophageal reflux disease without esophagitis; E78.5 Hyperlipidemia, unspecified; M10.9 Gout, unspecified; Z87.891 Personal history of nicotine dependence; Z98.890 Other specified postprocedural states
CPT/HCPCS: 93923

== ENCOUNTER → 2024-08-29 | Outpatient (CLI) | payer MEDICARE | END | disposition home or self-care (01) | LOC: WHH 09:35 | PROVIDERS: ATTEND Family Medicine | DX: E11.621 Type 2 diabetes mellitus with foot ulcer (principal); L97.522 Non-pressure chronic ulcer of other part of left foot with fat layer exposed; E11.51 Type 2 diabetes mellitus with diabetic peripheral angiopathy without gangrene; I12.9 Hypertensive chronic kidney disease with stage 1 through stage 4 chronic kidney disease, or unspecified chronic kidney disease; E11.22 Type 2 diabetes mellitus with diabetic chronic kidney disease; N18.30 Chronic kidney disease, stage 3 unspecified; I25.10 Atherosclerotic heart disease of native coronary artery without angina pectoris; E78.5 Hyperlipidemia, unspecified; J44.9 Chronic obstructive pulmonary disease, unspecified; K21.9 Gastro-esophageal reflux disease without esophagitis; M10.9 Gout, unspecified; Z79.01 Long term (current) use of anticoagulants; Z79.899 Other long term (current) drug therapy | CPT/HCPCS: 82948; G0277 ==

== ENCOUNTER → 2024-09-04 | Outpatient (CLI) | payer MEDICARE ==
[~2024-09-04] MED LIST changes: +LIDOCAINE HCL 4% LTA SOL 4 ML VIAL TP ONE
== END | disposition home or self-care (01) ==
LOC: WHH 09:19
PROVIDERS: ATTEND Family Medicine
DX: E11.621 Type 2 diabetes mellitus with foot ulcer (principal); L97.522 Non-pressure chronic ulcer of other part of left foot with fat layer exposed; E11.51 Type 2 diabetes mellitus with diabetic peripheral angiopathy without gangrene; E11.22 Type 2 diabetes mellitus with diabetic chronic kidney disease; I12.9 Hypertensive chronic kidney disease with stage 1 through stage 4 chronic kidney disease, or unspecified chronic kidney disease; N18.30 Chronic kidney disease, stage 3 unspecified; I25.10 Atherosclerotic heart disease of native coronary artery without angina pectoris; E78.5 Hyperlipidemia, unspecified; J44.9 Chronic obstructive pulmonary disease, unspecified; K21.9 Gastro-esophageal reflux disease without esophagitis; M10.9 Gout, unspecified; Z79.01 Long term (current) use of anticoagulants; Z79.899 Other long term (current) drug therapy
CPT/HCPCS: G0463

== ENCOUNTER → 2024-09-11 | Outpatient (CLI) | payer MEDICARE | END | disposition home or self-care (01) | LOC: WHH 09:04 | PROVIDERS: ATTEND Family Medicine | DX: E11.621 Type 2 diabetes mellitus with foot ulcer (principal); L97.522 Non-pressure chronic ulcer of other part of left foot with fat layer exposed; E11.51 Type 2 diabetes mellitus with diabetic peripheral angiopathy without gangrene; I12.9 Hypertensive chronic kidney disease with stage 1 through stage 4 chronic kidney disease, or unspecified chronic kidney disease; E11.22 Type 2 diabetes mellitus with diabetic chronic kidney disease; N18.30 Chronic kidney disease, stage 3 unspecified; I25.10 Atherosclerotic heart disease of native coronary artery without angina pectoris; E78.5 Hyperlipidemia, unspecified; J44.9 Chronic obstructive pulmonary disease, unspecified; K21.9 Gastro-esophageal reflux disease without esophagitis; M10.9 Gout, unspecified; Z79.01 Long term (current) use of anticoagulants; Z79.899 Other long term (current) drug therapy | CPT/HCPCS: G0463 ==

== ENCOUNTER → 2024-09-13 | Outpatient (CLI) | payer MEDICARE | END | disposition home or self-care (01) | LOC: WHH 09:01 | PROVIDERS: ATTEND Podiatrist Foot & Ankle Surgery | DX: E11.621 Type 2 diabetes mellitus with foot ulcer (principal); L97.522 Non-pressure chronic ulcer of other part of left foot with fat layer exposed; E11.51 Type 2 diabetes mellitus with diabetic peripheral angiopathy without gangrene; I12.9 Hypertensive chronic kidney disease with stage 1 through stage 4 chronic kidney disease, or unspecified chronic kidney disease; E11.22 Type 2 diabetes mellitus with diabetic chronic kidney disease; N18.30 Chronic kidney disease, stage 3 unspecified; I25.10 Atherosclerotic heart disease of native coronary artery without angina pectoris; E78.5 Hyperlipidemia, unspecified; J44.9 Chronic obstructive pulmonary disease, unspecified; K21.9 Gastro-esophageal reflux disease without esophagitis; M10.9 Gout, unspecified; Z79.01 Long term (current) use of anticoagulants; Z79.899 Other long term (current) drug therapy | CPT/HCPCS: G0463; A6260 ==

== ENCOUNTER → 2024-09-20 | Outpatient (CLI) | payer MEDICARE | END | disposition home or self-care (01) | LOC: WHH 08:58 | PROVIDERS: ATTEND Podiatrist Foot & Ankle Surgery | DX: E11.621 Type 2 diabetes mellitus with foot ulcer (principal); L97.522 Non-pressure chronic ulcer of other part of left foot with fat layer exposed; E11.51 Type 2 diabetes mellitus with diabetic peripheral angiopathy without gangrene; E11.22 Type 2 diabetes mellitus with diabetic chronic kidney disease; I12.9 Hypertensive chronic kidney disease with stage 1 through stage 4 chronic kidney disease, or unspecified chronic kidney disease; N18.30 Chronic kidney disease, stage 3 unspecified; I25.10 Atherosclerotic heart disease of native coronary artery without angina pectoris; E78.5 Hyperlipidemia, unspecified; J44.9 Chronic obstructive pulmonary disease, unspecified; K21.9 Gastro-esophageal reflux disease without esophagitis; M10.9 Gout, unspecified; Z79.01 Long term (current) use of anticoagulants; Z79.899 Other long term (current) drug therapy | CPT/HCPCS: G0463; A6260 ==

== ENCOUNTER → 2024-09-20 | Outpatient (CLI) | payer MEDICARE ==
[~2024-09-20] MED LIST changes: -LIDOCAINE HCL 4% LTA SOL 4 ML VIAL TP ONE
--- NOTE | 2024-09-20 17:11 | HMCIMG ---
MR FOOT LEFT WO HISTORY: Third digit ulcer COMPARISON: None TECHNIQUE: MRI of the left foot was performed utilizing multiple pulse sequences in axial, coronal and sagittal planes. Patient was not given contrast through intravenous route. FINDINGS: Abnormal increased signal intensity is seen involving the third middle and distal phalanges suggestive of osteomyelitis. No evidence of fracture or dislocation is seen. IMPRESSION: 1. Abnormal increased signal intensity involving the third middle and distal phalanges suggestive of osteomyelitis in a proper clinical setting.
== END | disposition home or self-care (01) ==
LOC: RAH 14:58
PROVIDERS: ATTEND Family Medicine
DX: E11.621 Type 2 diabetes mellitus with foot ulcer (principal); L97.529 Non-pressure chronic ulcer of other part of left foot with unspecified severity; I12.9 Hypertensive chronic kidney disease with stage 1 through stage 4 chronic kidney disease, or unspecified chronic kidney disease; N18.4 Chronic kidney disease, stage 4 (severe)
CPT/HCPCS: 73718; G0463; A6260

== ENCOUNTER → 2024-10-04 | Outpatient (CLI) | payer MEDICARE ==
[~2024-10-04] MED LIST changes: +LIDOCAINE HCL 4% LTA SOL 4 ML VIAL TP ONE
== END | disposition home or self-care (01) ==
LOC: WHH 08:54
PROVIDERS: ATTEND Podiatrist Foot & Ankle Surgery
DX: E11.621 Type 2 diabetes mellitus with foot ulcer (principal); L97.522 Non-pressure chronic ulcer of other part of left foot with fat layer exposed; E11.51 Type 2 diabetes mellitus with diabetic peripheral angiopathy without gangrene; E11.22 Type 2 diabetes mellitus with diabetic chronic kidney disease; I12.9 Hypertensive chronic kidney disease with stage 1 through stage 4 chronic kidney disease, or unspecified chronic kidney disease; N18.30 Chronic kidney disease, stage 3 unspecified; I25.10 Atherosclerotic heart disease of native coronary artery without angina pectoris; E78.5 Hyperlipidemia, unspecified; J44.9 Chronic obstructive pulmonary disease, unspecified; K21.9 Gastro-esophageal reflux disease without esophagitis; M10.9 Gout, unspecified; Z79.01 Long term (current) use of anticoagulants; Z79.899 Other long term (current) drug therapy
CPT/HCPCS: G0463; A4649; A4450; A6260

== ENCOUNTER 2024-11-26 19:36 | Emergency (ER) | payer MEDICARE ==
[~2024-11-26] VITALS: Ht 165.1 cm; Wt 79.8 kg
[~2024-11-26 19:36] MED LIST changes: -LIDOCAINE HCL 4% LTA SOL 4 ML VIAL TP ONE
--- NOTE | 2024-11-26 20:41 | ERN ---
ED Note History of Present Illness Stated Complaint: C/O DIZZINESS WITH N X V Chief Complaint: Dizzy/Light Headed Time Seen by MD: 19:35 Dictation: This is a 74-year-old female who presented to the emergency room complaining of feeling dizzy and lightheaded associated with nausea and vomitings. She stated that she was just started on Farxiga for her diabetes and she took the 1st dose last night. She woke up having severe vomitings and nausea. Apparently she was given instructions to come to the emergency room if she had any of the symptoms and hence she came in; she denied any loss of consciousness headache diarrhea Temperature 97.8 pulse 67 respirations 20 blood pressure 159/90 with a pulse oximetry of 99% on room air Her chronic medical problems include COPD, diabetes mellitus, hypertension, CAD status post stents. She has a previous history of smoking Allergies: Coded Allergies: adhesive tape (Unverified Allergy, Unknown, 07/05/23) aspirin (Unverified Allergy, Unknown, HIVES, 07/14/17) Home Meds Active Scripts Ondansetron (Ondansetron Odt) 4 Mg Tab.rapdis, 4 MG PO Q6HPRN PRN for nausea, #16 TAB 0 Refills Prov:LUCIUS SERRANO MD 11/26/24 Reported Medications Evolocumab (Repatha Syringe) 140 Mg/Ml Syringe, 1 ML SQ [id number] 08/16/24 Dexlansoprazole (Dexlansoprazole Dr) 60 Mg Cap.dr.bp, 1 CAP PO DAILY 08/16/24 Ipratropium/Albuterol Sulfate (Iprat-Albut 0.5-3(2.5) mg/3 ml) 0.5 Mg-3 Mg (2.5 Mg Base)/3 Ml Ampul.neb, 1 VIAL NEB Q6HPRN PRN for SHORTNESS OF BREATH 08/16/24 Furosemide (Furosemide) 20 Mg Tablet, 1 TAB PO AD 08/16/24 Pantoprazole Sodium (Protonix) 40 Mg Ectab, 1 TAB PO HS 08/16/24 Metoprolol Succinate (Metoprolol Succinate) 25 Mg Tab.er.24h, 1 TAB PO DAILY 08/16/24 Clopidogrel Bisulfate (Clopidogrel) 75 Mg Tablet, 1 TAB PO DAILY 08/16/24 Baclofen (Baclofen) 10 Mg Tablet, 1 TAB PO HS 08/16/24 Pregabalin (Pregabalin) 75 Mg Capsule, 1 CAP PO BID 08/16/24 Zolpidem Tartrate (Ambien) 10 Mg Tablet, 10 MG PO HS 08/16/24 Sodium Bicarbonate (Sodium Bicarbonate) 650 Mg Tablet, 1 TAB PO DAILY 08/16/24 Past Medical History Past Medical History: COPD, Diabetes-Type II, Hypertension Additional Past Medical Hx: 1 KIDNEY, STENTS IN LEGS Surgical History: Cholecystectomy Surgical History Other: CARDIAC STENTS Social History: Negative, Lives with family History: Not Applicable RN Note Reviewed/Agreed w/PFSH: Yes Review of System Dictation Constitutional: Negative for fever,chills, and weight loss positive for dizziness and lightheadedness Eyes: Negative for injury, pain,redness, and discharge ENT: Negative for injury,pain or swelling Cardiovascular: Negative for chest pain, palpitations, and edema Respiratory: Positive for shortness of breath, cough, and wheezing, Abdomen/GI: Negative for abdominal pain, positive for nausea, vomiting, denies diarrhea, and constipation Back: Negative for injury and pain : Negative for injury, bleeding and discharge MS/Extremity: Negative for injury and deformity Skin: Negative for rash, and discoloration Neuro: Negative for headache, weakness, numbness, tingling, and seizure Psych: Negative for suicide ideation, homicidal ideation, and hallucinations Initial Vital Sign VS Vital Signs Date Time Temp Pulse Resp B/P (MAP) Pulse Ox O2 Delivery O2 Flow Rate FiO2 11/26/24 19:39 97.9 67 20 159/90 99 Room Air Physical Exam Dictation General: awake, alert, NAD frail elderly female not short of breath at all Head/Face: Normocephalic, atraumatic Eyes: PERRL, EOMI, vision at baseline ENT: oral cavity clear, TMs clear, no signs of infection Neck: Trachea midline, supple, no nuchal rigidity Cardiovascular: RRR, normal S1/S2, No MRGs, no JVD Respiratory: Prolonged expiratory phase, no active wheezing Abdomen: Soft, non-tender, non-distended, normal bowel sounds, no guarding or rebound. Skin: Warm, dry, normal turgor, no rash MS/Extremity: Pulses equal, no cyanosis, neurovascular intact, FROM Neuro: COAx4, GCS 15, strength 5/5, CN 2-12 intact, normal cerebellar exam, normal gait, Psych: Normal behavior, mood, and affect normal Extremities-trace edema without any palpable cords, Homans sign is negative Results (Laboratory/Radiology) Laboratory/Radiology Laboratory Tests Test 11/26/24 20:56 White Blood Count 8.9 K/uL (4.8-10.8) Red Blood Count 4.48 MIL/uL (4.00-5.50) Hemoglobin 13.6 g/dL (12.0-16.0) Hematocrit 42.8 % (36-48) Mean Corpuscular Volume 95.5 fL (79-99) Mean Corpuscular Hemoglobin 30.4 pg (27.0-33.0) Mean Corpuscular Hemoglobin Concent 31.8 g/dL (32.0-36.0) L Red Cell Distribution Width 14.1 % (11.0-15.5) Platelet Count 257 K/uL (130-400) Mean Platelet Volume 9.2 fL (7.5-10.5) Immature Granulocyte % (Auto) 0.9 % (0-1) Neutrophils (%) (Auto) 61.9 % (40.0-77.0) Lymphocytes (%) (Auto) 25.6 % (21.0-51.0) Monocytes (%) (Auto) 8.7 % (3.0-13.0) Eosinophils (%) (Auto) 2.4 % (0.0-8.0) Basophils (%) (Auto) 0.5 % (0.0-5.0) Neutrophils # (Auto) 5.5 K/uL (1.8-7.7) Lymphocytes # (Auto) 2.3 K/uL (1.0-4.8) Monocytes # (Auto) 0.8 K/uL (0.1-1.0) Eosinophils # (Auto) 0.21 K/uL (0.00-0.70) Basophils # (Auto) 0.04 K/uL (0.00-0.20) Absolute Immature Granulocyte (auto 0.08 K/uL (0-1) Nucleated Red Blood Cells 0.0 % (0.0-0.19) Sodium Level 141 mmol/L (136-145) Potassium Level 4.1 mmol/L (3.5-5.1) Chloride Level 102 mmol/L (101-111) Carbon Dioxide Level 27 mmol/L (21-32) Blood Urea Nitrogen 57 mg/dL (7-18) H Creatinine 2.0 mg/dL (0.5-1.0) H Glomerular Filtration Rate Calc 25 mL/min (>90) Random Glucose 102 mg/dL (70-105) Total Calcium 8.6 mg/dL (8.5-10.1) Total Creatine Kinase 214 U/L (21-232) Troponin I High Sensitivity 9 ng/L (4-50) Lipase 47 U/L (16-77) Labs Reviewed?: Yes EKG Comment: 12 lead EKG done on 11/26/2024 and 9:13 p.m. showed a heart rate of 60, NC interval 210, QRS 92, QT/QTC 454/454 Impression normal sinus rhythm with nonspecific ST-T changes overall somewhat of a low voltage with a borderline NC Interpreted by ER MD Schulte ED Course ED Course Orders Procedure Category Date Status Time Cbc With Differential LAB 11/26/24 Complete 20:41 Troponin I High LAB 11/26/24 Complete Sensitivity 20:41 Urinalysis Profile LAB 11/26/24 Logged 20:41 12 Lead Ekg Tracing- EKG 11/26/24 Logged Technical 20:41 Lactated Ringers PHA 11/26/24 Complete 1000ml (Lactated 21:00 0.9%Nacl 1000ml (Ns PHA 11/26/24 Complete 1000ml) 21:00 0.9%Nacl 1000ml (Ns PHA 11/26/24 Complete 1000ml) 21:00 Ondansetron 4mg Inj PHA 11/26/24 Complete (Zofran 4mg Inj) 21:00 Pantoprazole 40mg Inj PHA 11/26/24 Complete (Protonix 40mg Inj 21:00 Creatine Kinase, Total LAB 11/26/24 Complete 20:41 Lipase LAB 11/26/24 Complete 20:41 Basic Metabolic Panel LAB 11/26/24 Complete 20:41 Current Medications Medications (Trade) Dose Ordered Sig/Nic Route PRN Reason Start Time Stop Time Status Last Admin Dose Admin Lactated Ringer's 1,000 ml @ 125 mls/hr ONCE ONCE IV 11/26/24 21:00 11/26/24 21:08 DC Ondansetron HCl (zoFRAN 4MG INJ) 4 mg ONCE ONCE IVP 11/26/24 21:00 11/26/24 21:01 DC 11/26/24 21:32 Pantoprazole Sodium (PROTonix 40MG INJ) 40 mg ONCE ONCE IVP 11/26/24 21:00 11/26/24 21:01 DC 11/26/24 21:32 Sodium Chloride 1,000 ml @ 0 mls/hr ONCE ONCE IV 11/26/24 21:00 11/26/24 21:01 DC 11/26/24 21:33 Sodium Chloride 1,000 ml @ 125 mls/hr ONCE ONCE IV 11/26/24 21:00 11/26/24 20:45 DC Vital Signs Date Time Temp Pulse Resp B/P (MAP) Pulse Ox O2 Delivery O2 Flow Rate FiO2 11/26/24 19:39 97.9 67 20 159/90 99 Room Air We will perform diagnostic labs, advanced imaging and administer medications according to the patient's complaint. Once the results are available, will review and personally interpreted the labs to rule out any acute life- threatening emergency the trach require immediate intervention and treatment. I will then re-evaluate the patient after treatment and diagnostic exams have return to determine whether the patient requires any further testing, can safely be discharged home or need further admission to hospital for additional treatment and evaluation. Labs reviewed CBC within normal limits BNP 7 showed a BUN and creatinine of 57 and 2.0. Her baseline BUN is 40 as of 08/06/2024. Patient feels significantly improved after fluid resuscitation and antiemetics. She is familiar with her severe kidney disease and PCP has been following this closely Medical Decision Making MDM MDM: Differential diagnosis: Likely side effect of her new antihyperglycemic agent, viral gastroenteritis, pancreatitis, cholecystitis Rationale: Tests considered and ordered secondary to shared decision making include: Previous outside records reviewed: Old ER visits. Risk of complication and/or morbidity or mortality of patient management: None Medications-Per medication reconciliation Need for hospitalization: Patient does not meet criteria for hospitalization. Need for emergency major/minor surgery: No There are no social concerns with this patient. Prescription drug management Prescriptions will include symptomatic care Patient's prior external medical records from other ER visits were reviewed by me as indicated. Prior testing and results from previous visits were reviewed. Prior tests were taken into account with medical decision making and resource utilization, independent historian/historians were used to obtain complete medical history. I independently interpreted the test that were performed, results were reviewed by me and considered findings on radiology if ordered. Medical management and examination interpretation discussions were had by me with other qualified healthcare professionals as indicated for the patient's care. Problem List Problem List: (1) Nausea & vomiting (2) Adverse effects of medication (3) Diabetes mellitus (4) COPD (chronic obstructive pulmonary disease) (5) Acute kidney injury superimposed on stage 4 chronic kidney disease DX & DISP Disposition: Discharge Departure Impression: Primary Impression: Nausea & vomiting Additional Impressions: Adverse effects of medication, Diabetes mellitus, COPD (chronic obstructive pulmonary disease), Acute kidney injury superimposed on stage 4 chronic kidney disease Condition: Stable Scripts Ondansetron (Ondansetron Odt) 4 Mg Tab.rapdis 4 MG PO Q6HPRN PRN for nausea, #16 TAB 0 Refills Prov: LUCIUS SERRANO MD 11/26/24 Additional Instructions: Patient and the caregiver have been informed of all the diagnostic tests and the imaging conducted during the today's visit to the emergency room and has verbalized understanding of the results I have personally reviewed and interpreted all diagnostic exams performed here in the ER today as well as the vital signs documented by the nursing staff. The patient is now being discharged to home and should follow up with the primary care physician or the specialist as directed by the ER staff. Follow-up with primary care provider in 1 to 2 days. Take medications as directed here in the emergency room. Okay to continue home medications unless otherwise discussed during your visit in the emergency room today. Return to your nearest emergency room if symptoms worsen or if there is no improvement. Call 911 if you need immediate assistance. Take Tylenol or Motrin [id number] as needed and if no contraindications are present. Increase oral hydration. A wound culture or urine culture was ordered here in the emergency room department please follow-up with primary care provider and advise them to get repeat ports from our facility. If you had any Jonathan wrap/splints that were applied here, please do not remove them until you see your primary care or specialty. Instructed her to call her primary care physician in the morning to update them on the adverse effects of the Farxiga and see if she needs to be changed to an alternative medications. She also needs to get kidney function checked in a week to 2 weeks upon discharge Referrals: BIBIANA RAMIREZ MD (PCP) LUCIUS SERRANO MD Nov 26, 2024 20:41
[2024-11-26] MEDS ORDERED: LACTATED RINGERS 1000ML 1,000 ML IV ONE (21:00)
[2024-11-26] MEDS ORDERED: 0.9%NACL 1000ML 1,000 ML IV ONE (21:00)
[2024-11-26 21:06] LABS: BASOPHILS # (AUTO) 0.04 K/uL (0.00-0.20); BASOPHILS % (AUTO) 0.5 % (0.0-5.0); EOSINOPHILS # (AUTO) 0.21 K/uL (0.00-0.70); EOSINOPHILS % (AUTO) 2.4 % (0.0-8.0); HEMATOCRIT 42.8 % (36-48); IMMATURE GRANULOCYTE ABSOLUTE 0.08 K/uL (0-1); LYMPHOCYTES # (AUTO) 2.3 K/uL (1.0-4.8); LYMPHOCYTES % (AUTO) 25.6 % (21.0-51.0); MEAN CORPUSCULAR HEMOGLOBIN 30.4 pg (27.0-33.0); MEAN CORPUSCULAR HGB CONC 31.8 g/dL (32.0-36.0); MEAN CORPUSCULAR VOLUME 95.5 fL (79-99); MONOCYTES # (AUTO) 0.8 K/uL (0.1-1.0); MONOCYTES % (AUTO) 8.7 % (3.0-13.0); NEUTROPHILS # (AUTO) 5.5 K/uL (1.8-7.7); NEUTROPHILS % (AUTO) 61.9 % (40.0-77.0); PLATELET COUNT (AUTO) 257 K/uL (130-400); RED BLOOD CELL COUNT(AUTO) 4.48 MIL/uL (4.00-5.50); RED CELL DISTRIBUTION WIDTH 14.1 % (11.0-15.5); WHITE BLOOD COUNT (AUTO) 8.9 K/uL (4.8-10.8)
[2024-11-26 21:15] LABS: POTASSIUM 4.1 mmol/L (3.5-5.1)
[2024-11-26] MEDS: PANTOPrazole 40 MG/VIAL IVP ONE (21:32)
[2024-11-26] MEDS: ondanSETRON 4MG INJ IVP ONE (21:32)
[2024-11-26] MEDS: 0.9%NACL 1000ML 1,000 ML IV ONE (21:33)
[2024-11-26] MEDS ORDERED: ONDA-243 PO (21:37)
[2024-11-26 22:35] VITALS: BP 156/85; PULSE 65; RESP 16; TEMP 98.1; O2SAT 98
--- NOTE | 2024-11-26 22:41 | NUR ---
PT DELAY DUE TO COMPLETION OF MEDICATION PT CURRENTLY DISPLAYS NO DISTRESS AND REPORTS DIZZINESS SUBSIDED.
--- NOTE | 2024-11-27 06:46 | EKG ---
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
== END 2024-11-26 23:09 | disposition home or self-care (01) ==
LOC: EDH 19:36
DX: I12.9 Hypertensive chronic kidney disease with stage 1 through stage 4 chronic kidney disease, or unspecified chronic kidney disease (principal); E11.22 Type 2 diabetes mellitus with diabetic chronic kidney disease; N18.4 Chronic kidney disease, stage 4 (severe); R11.2 Nausea with vomiting, unspecified; J44.9 Chronic obstructive pulmonary disease, unspecified; N17.9 Acute kidney failure, unspecified; Z79.02 Long term (current) use of antithrombotics/antiplatelets; Z99.2 Dependence on renal dialysis; Z79.899 Other long term (current) drug therapy; Z88.6 Allergy status to analgesic agent; Z90.49 Acquired absence of other specified parts of digestive tract; Z95.5 Presence of coronary angioplasty implant and graft
CPT/HCPCS: 99284; 96374; 96375; 82550; 84484; 80048; 83690; 85025; 36415; 93005; J7030; J2405; J2470

== ENCOUNTER → 2024-11-27 | Outpatient (CLI) | payer MEDICARE ==
[~2024-11-27] MED LIST changes: +ONDA-243 PO
--- NOTE | 2024-11-27 17:41 | HMCIMG ---
HIP UNILAT 2-3VW LEFT HISTORY: [Pain COMPARISON: None TECHNIQUE: 3 images of left hip were obtained. FINDINGS: There is no acute displaced fracture or dislocation. Joint space narrowing is seen. Vascular calcifications are seen. Degenerative changes are seen. IMPRESSION: 1. Findings as described above.
== END | disposition home or self-care (01) ==
LOC: RAH 16:55
PROVIDERS: ATTEND Internal Medicine Nephrology
DX: M16.12 Unilateral primary osteoarthritis, left hip (principal); M25.552 Pain in left hip
CPT/HCPCS: 73502

== ENCOUNTER → 2024-12-13 | Outpatient (CLI) | payer MEDICARE ==
[~2024-12-13] MED LIST changes: +LIDOCAINE HCL 4% LTA SOL 4 ML VIAL TP ONE
== END | disposition home or self-care (01) ==
LOC: WHH 08:42
PROVIDERS: ATTEND Podiatrist Foot & Ankle Surgery
DX: E11.621 Type 2 diabetes mellitus with foot ulcer (principal); L97.522 Non-pressure chronic ulcer of other part of left foot with fat layer exposed; S93.402A Sprain of unspecified ligament of left ankle, initial encounter; S79.919A Unspecified injury of unspecified hip, initial encounter; M1A.9XX1 Chronic gout, unspecified, with tophus (tophi); E11.51 Type 2 diabetes mellitus with diabetic peripheral angiopathy without gangrene; E78.5 Hyperlipidemia, unspecified; I12.9 Hypertensive chronic kidney disease with stage 1 through stage 4 chronic kidney disease, or unspecified chronic kidney disease; N18.4 Chronic kidney disease, stage 4 (severe); I25.10 Atherosclerotic heart disease of native coronary artery without angina pectoris; E11.22 Type 2 diabetes mellitus with diabetic chronic kidney disease; M16.12 Unilateral primary osteoarthritis, left hip; Z99.2 Dependence on renal dialysis; Z79.899 Other long term (current) drug therapy; Z90.49 Acquired absence of other specified parts of digestive tract; Z95.5 Presence of coronary angioplasty implant and graft; W19.XXXA Unspecified fall, initial encounter; Y93.89 Activity, other specified; Y92.89 Other specified places as the place of occurrence of the external cause; Y99.8 Other external cause status
CPT/HCPCS: G0463